=== PATIENT | female | born 2000 | race African-American/Black ===

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

== ENCOUNTER 2024-08-01 13:59 | Emergency (ER) | payer MEDICAID ==
[~2024-08-01] VITALS: Ht 162.6 cm; Wt 58.9 kg
[~2024-08-01 13:59] MED LIST: IBUP-2029 MT
[2024-08-01 14:08] VITALS: BP 112/65; PULSE 98; RESP 18; TEMP 97.9; O2SAT 99
[2024-08-01] MEDS: BACITRACIN ZINC OINT UDPKT TOP ONE (18:01)
[2024-08-01] MEDS: LIDOCAINE HCL/PF 1% 10 MG/ML 5ML VIAL INFIL ONE (18:01)
[2024-08-01] MEDS: TETANUS, DIPHTHERIA, PERTUSSIS VAC/PF 0.5ML (>10YR OLD) IM ONE (18:05)
[2024-08-01] MEDS ORDERED: CEPH500C2 MT (18:31)
== END 2024-08-01 19:11 | disposition home or self-care (01) ==
LOC: ER 13:59
DX: S61.412A Laceration without foreign body of left hand, initial encounter (principal); W26.0XXA Contact with knife, initial encounter; Y93.89 Activity, other specified; Y92.89 Other specified places as the place of occurrence of the external cause; Y99.8 Other external cause status
CPT/HCPCS: 99283; 90715; 12002; 90471; J3490